=== PATIENT | female | born 1955 | race Caucasian/White ===

== ENCOUNTER 2020-03-17 07:49 | Day surgery (SDC) | payer OTHER ==
[2020-03-16 12:45] LABS: Absolute Lymphocytes (CBC) 1.5 K/uL (0.7-4.9); Basophils % 3.8 % (0-1.3); Hematocrit 38.6 % (36.0-45.0); Lymphocytes % 27.6 % (15.3-44.8); MPV 9.5 fL (7.6-11.3); RBC Red Blood Cell Count 3.87 M/uL (3.86-4.86)
--- NOTE | 2020-03-16 12:47 | RAD REPORT ---
EXAM DESCRIPTION: RAD - Chest Pa And Lat (2 Views) - 03/16/2020 12:39 pm CLINICAL HISTORY: pre op Chest pain. COMPARISON: No comparisons FINDINGS: The lungs are clear. The heart is normal in size. No displaced fractures. IMPRESSION: No acute or concerning finding suspected.
[2020-03-16 13:56] LABS: Blood Morphology Comment NOT SEEN (NOT SEEN); Platelet Estimate ADEQ; White Blood Cell Scan OK (OK)
--- OUTSIDE RECORDS SUMMARY | 2020-03-17 07:58 | XMS REPORT | Summary of Care ---
:1955 Author Organization [facility] Address [address] [place] [address] Care Team Providers Name Role Phone Joe Vega DO Primary Care Provider Reason for Visit Reason Comments Diabetic Eye Exam (Routine) Status Reason Specialty Diagnoses / Procedures Referred By Latosha bocanegraed To Contact Contact Closed Ophthalmology Diagnoses Type 2 diabetes mellitus with stage 3 chronic kidney disease, with long-term current use of insulin Akil Yost MD Procedures CONSULT/REFERRAL OPHTHALMOLOGY Preferred location: [address] [address] Encounter Details Date Type Department Care Team Description 01/05/2020 Office Visit [facility] Eye Livier Ortiz Retinal edema (Primary Dx); Center- Sofiya Leavitt MD Senile nuclear cataract, bilateral; [address], [facility] Refractiv e error [id number] [place] [address] [phone] Allergies No Known Allergiesdocumented as of this encounter (statuses as of 01/05/2020) Medications Medication Sig Dispensed Refills Start Date End Date Status aspirin 81 mg tablet Take 81 mg by 0 Active mouth daily. allopurinol (ZYLOPRIM) Take 1 Tab by 90 Tab 3 04/14/2014 Active 300 mg mouth daily. tabletIndications: Gout, unspecified carvedilol (COREG) TAKE 1 BY MOUTH 180 tablet 1 10/20/2015 Active 6.25 mg tablet TWICE DAILY Blood-Glucose Meter Use as directed, 1 Each 0 09/24/2017 Active (ACCU-CHEK GUIDE DX:E11.9, TID GLUCOSE METER) Misc atorvastatin 10 mg TAKE 1 BY MOUTH 90 tablet 3 01/29/2018 Active tabletIndications: AT BEDTIME Dyslipidemia phentermine 37.5 mg Take 1 capsule by 90 capsule 1 08/14/2018 Active capsuleIndications: mouth every Weight gain morning. ONE TOUCH DELICA 33 Use as directed 100 Each 1 08/14/2018 Active gauge MiscIndications: Once Daily DX: Type 2 diabetes E11.9 mellitus with stage 3 chronic kidney disease, with long-term current use of insulin Insulin [place], Use as directed. 200 Each 3 03/12/2019 Active Disposable, (YANETH PEN 2 times daily NEEDLE) 32 gauge x 5/32" NdleIndications: Type 2 diabetes mellitus with stage 3 chronic kidney disease, with long-term current use of insulin blood sugar diagnostic Use as directed 100 Strip 1 03/12/2019 Active (ONETOUCH VERIO) One time Daily stripIndications: Type DX: E11.9 2 diabetes mellitus with stage 3 chronic kidney disease, with long-term current use of insulin metformin ER 500 mg 24 Take 1 tablet by 90 tablet 1 07/23/2019 Active hr tabletIndications: mouth daily with Type 2 diabetes breakfast. mellitus with stage 3 chronic kidney disease, with long-term current use of insulin insulin glargine U-300 inject 30 Units 15 mL 1 11/26/2019 Active conc (TOUJEO SOLOSTAR under the skin U-300 INSULIN) 300 every morning. unit/mL (1.5 mL) InPnIndications: Type 2 diabetes mellitus with stage 3 chronic kidney disease, with long-term current use of insulin semaglutide (OZEMPIC) inject 1 mg under 3 mL 4 11/26/2019 Active 1 mg/dose (2 mg/1.5 the skin weekly. mL) PnIjIndications: Type 2 diabetes mellitus with stage 3 chronic kidney disease, with long-term current use of insulin documented as of this encounter (statuses as of 01/05/2020) Active Problems Problem Noted Date Dyslipidemia 02/06/2017 Uncontrolled type 2 diabetes with renal manifestation 12/01/2015 Vitamin D deficiency 12/01/2015 Type 2 diabetes mellitus with diabetic chronic kidney disease 08/21/2015 HLD (hyperlipidemia) 08/06/2012 Essential hypertension, benign 08/06/2012 Gout 08/06/2012 Overview: ICD10 Diagnosis Term Heater Operator Helper Utility Obesity 08/06/2012 Overview: ICD10 Diagnosis Term Heater Operator Helper Utility documented as of this encounter (statuses as of 01/05/2020) Resolved Problems Problem Noted Date Resolved Date Type II or unspecified type diabetes mellitus with renal 08/21/2015 manifestations, uncontrolled(250.42) documented as of this encounter (statuses as of 01/05/2020) Immunizations Name Administration Dates Next Due Influenza Virus Vaccine Quad IM 3+ YRS 03/17/2015 documented as of this encounter Social History Tobacco Use Types Packs/Day Years Used Date Never Smoker Smokeless Tobacco: Never Used Alcohol Use Drinks/Week oz/Week Comments Yes occasionally a b eer Sex Assigned at Date Recorded Not on file Job Start Date Occupation Industry Not on file Not on file Not on file Travel History Travel Start Travel End No recent travel history available. COVID-19 Exposure Response Date Recorded In the last month, have you been in contact with No / Unsure 01/05/2020 9:38 AM CDT someone who was confirmed or suspected to have Coronavirus / COVID-19? documented as of this encounter Last Filed Vital Signs Vital Sign Reading Time Taken Comments Blood Pressure - - Pulse - - Temperature - - Respiratory Rate - - Oxygen Saturation - - Inhaled Oxygen Concentration - - Weight 75.3 kg (166 lb) 01/05/2020 9:39 AM CDT Height - - Body Mass Index 29.41 11/26/2019 11:54 AM CDT documented in this encounter Progress Notes Livier Ortiz MD - 01/05/2020 9:45 AM CDT Cc: Diabetic Eye Exam Veronica Braswell is a 64 year old female. HPI Here for diabetic eye exam. Pt has had eye injections in the past. Last eye exam 3 years ago. No eye pain or discomfort. No new floaters or photopsias. Past Medical History: Diagnosis Date CKD (chronic kidney disease), stage III Diabetes mellitus type 2 in obese 1997 HLD (hyperlipidemia) HTN (hypertension) Review of Systems Reviewed ROS done by the airframe technician during this encounter and there are no changes. Assessment ICD-10-CM ICD-9-CM 1. Retinal edema H35.81 362.83 2. Senile nuclear cataract, bilateral H25.13 366.16 3. Refractive error H52.7 367.9 Valentina Martin was seen today for diabetic eye exam. Diagnoses and all orders for this visit: Retinal edema -Type II DM w/ DME OD>OS -with hx of receiving IVT, but lost to follow up. Last injection more than 5 years ago, last eye exam more than 3 years ago. -Will schedule follow up with Retina service for further eval/ treatment/ recommendations Senile nuclear cataract, bilateral -visually significant -plan CE once DME controlled Refractive error -repeat MRX once DME improved Ruth Suarez - 01/05/2020 9:45 AM CDTOCT mac done OU Ruth Suarez 01/05/2020 9:55 AM documented in this encounter Plan of Treatment Date Type Specialty Care Team Description 04/06/2020 Office Visit Endocrinology Diabetes & Matt Yost MD [id number] [place] [address] [phone] Health Maintenance Due Date Last Done Comments HEPATITIS C (HCV) SCREEN 1955 DTaP,Tdap,and Td Vaccines 1966 (1 - Tdap) COLONOSCOPY 12/12/2003 Zoster Recombinant Vaccine 12/12/2003 (SHINGRIX) (1 of 2) Medicare Wellness Visit 2018 PNEUMOCOCCAL VACCINES 65+ 2018 (1 of 2 - PCV13) EYE EXAM 12/13/2018 12/13/2017, 2014 (Previously completed) Breast Cancer Screening 02/27/2020 02/26/2019, 12/25/2017, (MAMMOGRAM) 11/03/2016 INFLUENZA VACCINE (#1) 2020 03/26/2019, 03/17/2015, P ostponed from 03/17/2015 02/17/2020 ([place] r[place] Guidelines) CREATININE (SERUM) 05/07/2020 05/07/2019, 07/06/2015 (Previously completed), 08/11/2014, Additional history exists LDL-C 05/07/2020 05/07/2019, 02/24/2016, 12/01/2015, Additional history exists URINE MICROALBUMIN 05/07/2020 05/07/2019, 02/24/2016, 03/16/2015 HgA1C 05/27/2020 11/26/2019, 07/23/2019, 05/06/2018, Additional history exists FOOT EXAM 07/23/2020 07/23/2019, 07/23/2019, 03/12/2019, Additional history exists Depression Screening 08/06/2020 08/06/2019 Osteoporosis Screening 02/26/2029 02/26/2019 documented as of this encounter Results Not on filedocumented in this encounter Visit Diagnoses Diagnosis Retinal edema - Primary Senile nuclear cataract, bilateral Refractive error Unspecified disorder of refraction and a ccommodation documented in this encounter Insurance Payer Benefit Plan Subscriber ID Effective Phone Address Typ e / Group Dates MEDICARE MEDICARE xxxxxxxxxxx 2018-Pres [phone] [facility] care PART A & B ent [id number] CHRISTOPHER [place] [phone] [place]UT[place] [id number] 2018-Pres Medica sara CARLSON MODOC ent Supplement documented as of this encounter Advance Directives Type Date Recorded Patient Youth Court Judge Explanati on Advance Directives and Living Will Power of Broodmare Barn Groom
--- OUTSIDE RECORDS SUMMARY | 2020-03-17 07:59 | XMS REPORT | Continuity of Care Document ---
:1955 Author Organization [facility] t Address [address] [place] [address] Care Team Providers Name Role Phone Arslan SANDS Attending Clinician Problems This patient has no known problems. Allergies, Adverse Reactions, Alerts This patient has no known allergies or adverse reactions. Medications This patient has no known medications. Procedures This patient has no known procedures. Encounters Start End Encounter Admission Attending Care Care Encounter Source Date/Time Date/Time Type Type Clinicians Facility Department ID 2020-01-26 2020-01-26 Office LEXIS Mcdaniels [id number] 13:18:32 14:28:52 Visit Omar Martinez [id number] [facility] [id number] [facility] [id number] [address] Results This patient has no known results.
--- OUTSIDE RECORDS SUMMARY | 2020-03-17 07:59 | XMS REPORT | Summary of Care ---
:1955 Author Organization [facility] Address [address] [place] [address] Care Team Providers Name Role Phone Joe Vega DO Primary Care Provider Reason for Visit Reason Comments Diabetic Eye Exam (Routine) Status Reason Specialty Diagnoses / Procedures Referred By Latosha bocanegraed To Contact Contact Closed Ophthalmology Diagnoses Type 2 diabetes mellitus with stage 3 chronic kidney disease, with long-term current use of insulin Akil Yost MD Procedures CONSULT/REFERRAL OPHTHALMOLOGY Preferred location: [address] [address] Encounter Details Date Type Department Care Team Description 01/05/2020 Office Visit [facility] Eye Livier Ortiz Retinal edema (Primary Dx); Center- Sofiya Leavitt MD Senile nuclear cataract, bilateral; [address], [facility] Refractiv e error [id number] [place] [address] [phone] Allergies No Known Allergiesdocumented as of this [...] with long-term current use of insulin Insulin [place], Use as directed. 200 Each 3 03/12/2019 [...] 08/06/2012 Gout 08/06/2012 Overview: ICD10 Diagnosis Term Clinical Quality Assurance Specialist Utility Obesity 08/06/2012 Overview: ICD10 Diagnosis Term Clinical Quality Assurance Specialist Utility documented as of this encounter (statuses [...] of Systems Reviewed ROS done by the nutrition technician during this encounter and there are [...] Visit Endocrinology Diabetes & Matt Yost MD [address] [place] [address] [phone] Health Maintenance Due Date Last Done Comments [...] MEDICARE xxxxxxxxxxx 2018-Pres [phone] [address] [facility] care PART A & B ent [id number] CHRI[place]HER [place] [phone] MUTUAL OF MUTUAL OF [id number] 2018-Pres Medica sara CARLSON UGASHIK ent Supplement documented as of this encounter Advance Directives Type Date Recorded Patient Plant Guide Explanati on Advance Directives and Living Will Power of Steward/Stewardess Tourist Class
--- OUTSIDE RECORDS SUMMARY | 2020-03-17 07:59 | XMS REPORT | Summary of Care ---
:1955 Author Organization [facility] Address [address] [place] [address] Care Team Providers Name Role Phone Joe Vega DO Primary Care Provider Reason for Visit Reason Comments BLURRED VISION Cataract DIABETIC MACULAR EDEMA Encounter Details Date Type Department Care Team Description 01/26/2020 Office Visit [facility] Eye Omar Mcdaniels M D Type 2 diabetes mellitus with both eyes affected by moderate nonproliferative retinopathy and macular edema, with long-term current use of insulin (Primary Dx); [place] [address] Retinal edema; [address] [facility]. Senile nuclear cataract, bilateral; [facility]. [place], [place] [address] [phone] Allergies No Known Allergiesdocumented as of this encounter (statuses as of 01/26/2020) Medications Medication Sig Dispensed Refills Start Date [...] with long-term current use of insulin Insulin [place], Use as directed. 200 Each 3 03/12/2019 [...] as of this encounter (statuses as of 01/26/2020) Active Problems Problem Noted Date Dyslipidemia 02/06/2017 Uncontrolled type 2 diabetes with renal manifestation 12/01/2015 Vitamin D deficiency 12/01/2015 Type 2 diabetes mellitus with diabetic chronic kidney disease 08/21/2015 HLD (hyperlipidemia) 08/06/2012 Essential hypertension, benign 08/06/2012 Gout 08/06/2012 Overview: ICD10 Diagnosis Term Automobiles Salesperson Utility Obesity 08/06/2012 Overview: ICD10 Diagnosis Term Automobiles Salesperson Utility documented as of this encounter (statuses as of 01/26/2020) Resolved Problems Problem Noted Date Resolved Date Type II or unspecified type diabetes mellitus with renal 08/21/2015 manifestations, uncontrolled(250.42) documented as of this encounter (statuses as of 01/26/2020) Immunizations Name Administration Dates Next Due Influenza Virus Vaccine Quad IM 3+ YRS 03/17/2015 documented as of this encounter Social History Tobacco Use Types Packs/Day Years Used Date Never Smoker Smokeless Tobacco: Never Used Alcohol Use Drinks/Week oz/Week Comments Yes occasionally a b eer Sex Assigned at Date Recorded Not on file COVID-19 Exposure Response Date Recorded In the [...] - - Weight 75.3 kg (166 lb) 01/26/2020 1:36 PM CDT Height - - Body Mass Index 29.41 11/26/2019 11:54 AM CDT documented in this encounter Progress Notes Omar Mcdaniels MD - 01/26/2020 1:30 PM CDT Ophthalmology New Patient Clinic Note CC: Chief Complaint Patient presents with DIABETIC MACULAR EDEMA Cataract HPI: Veronica Braswell is a 64 year old female with PMH listed below who presents to ophthalmology clinicfor f/u diabetic examination. Pt complains of recent blurry vision over the past 1 year. Pt has hx of intravitreal injections for DME. Referred from Dr. Ortiz for retinal eval. States blood sugars have been well controlled. Denies flashes/floaters. Does not use any eye drops at this time. No hx of ocular trauma No hx of ocular surgery. ROS: Review of systems done by pump technician during this encounter. No changes noted. PMH: Past Medical History: Diagnosis Date CKD (chronic kidney disease), stage III Diabetes mellitus type 2 in obese 1997 HLD (hyperlipidemia) HTN (hypertension) PSH: History reviewed. No pertinent surgical history. SH: Tobacco: Denies FH: Family history + for glaucoma and macular degeneration in mother POH: Last received intravitreal injections in both eyes 5 years ago. Meds: insulin glargine U-300 conc (TOUJEO SOLOSTAR U-300 INSULIN) 300 unit/mL (1.5 mL) InPn inject 30 Units under the skin every morning. semaglutide (OZEMPIC) 1 mg/dose (2 mg/1.5 mL) PnIj inject 1 mg under the skin weekly. metformin ER 500 mg 24 hr tablet Take 1 tablet by mouth daily with breakfast. blood sugar diagnostic (ONETOUCH VERIO) strip Use as directed One time Daily DX: E11.9 Insulin [place], Disposable, (YANETH PEN NEEDLE) 32 gauge x 5/32" Ndle Use as directed. 2 times daily ONE TOUCH DELICA 33 gauge Misc Use as directed Once Daily DX: E11.9 phentermine 37.5 mg capsule Take 1 capsule by mouth every morning. atorvastatin 10 mg tablet TAKE 1 BY MOUTH AT BEDTIME Blood-Glucose Meter (ACCU-CHEK GUIDE GLUCOSE METER) Misc Use as directed, DX:E11.9, TID carvedilol (COREG) 6.25 mg tablet TAKE 1 BY MOUTH TWICE DAILY allopurinol (ZYLOPRIM) 300 mg tablet Take 1 Tab by mouth daily. aspirin 81 mg tablet Take 81 mg by mouth daily. Imaging: OCT Macula (01/26/20): OD: IRF inferotemporally, Macroaneurysm off of inferior arcade, drusen OS: IRF, macroaneurysm temporal to fovea, IRF. drusen Assessment/Plan: 64 year old female seen by ophthalmology for DIABETIC MACULAR EDEMA and Cataract Mild NPDR with mild DME OU - scattered db heme noted - Blood sugars well controlled as per patient - Continue tight control of blood sugars as per PMD - R/B/A of injection vs monitoring discussed at length with patient and as A1c well controlled and VA intact will monitor Capillary Macroaneurysms - Blood sugars under good control, high blood pressure - recommend tight BP control per PCP - monitor Drusen OU - Not visually significant, monitor Cataract OU - Not visually significant at this time RTC: 6-8 week with DFe/OCT ou, consider injection if fluid worsen Gabby Brown DO Retina Fellow I personally examined the patient on 01/26/2020 and agree with fellow note as written . I actively participated in the decision-making process. Please see the fellows's note for additional details. Yolanda Delgadillo - 01/26/2020 1:30 PM CDTOct/mac documented in this encounter Plan of Treatment Date Type Specialty Care Team Description 04/06/2020 Office Visit Endocrinology Diabetes & Matt Yost MD Metabolism [facility] [place], [place] [address] Health Maintenance Due Date Last Done Comments HEPATITIS C (HCV) SCREEN 1955 DTaP,Tdap,and Td Vaccines (1 - 1972 Tdap) COLON CANCER SCREENING ANNUAL 12/12/2003 FIT/FOBT COLON CANCER SCREENING FIT DNA 12/12/2003 EVERY 3 YEARS COLON CANCER SCREENING 12/12/2003 SIGMOIDOSCOPY EVERY 5 YEARS COLONOSCOPY 12/12/2003 Colorectal Cancer Screening 12/12/2003 Zoster Recombinant Vaccine 12/12/2003 (SHINGRIX) (1 of 2) Medicare Wellness Visit 2018 PNEUMOCOCCAL VACCINES 65+ (1 of 1 2018 - PPSV23) INFLUENZA VACCINE (#1) 2020 03/26/2019, 03/17/2015, 03/17/2015 Breast Cancer Screening 02/27/2020 02/26/2019, 12/25/2017, (MAMMOGRAM) 11/03/2016 CREATININE (SERUM) 05/07/2020 05/07/2019, 07/06/2015 (Previously completed), 08/11/2014, Additional history exists LDL-C 05/07/2020 05/07/2019, 02/24/2016, 12/01/2015, Additional history exists URINE MICROALBUMIN 05/07/2020 05/07/2019, 02/24/2016, 03/16/2015 HgA1C 05/27/2020 11/26/2019, 07/23/2019, 05/06/2018, Additional history exists FOOT EXAM 07/23/2020 07/23/2019, 07/23/2019, 03/12/2019, Additional history exists Depression Screening 08/06/2020 08/06/2019 EYE EXAM 01/04/2021 01/05/2020, 12/13/2017, 2014 (Previously completed) Osteoporosis Screening 02/26/2029 02/26/2019 documented as of this encounter Procedures Procedure Name Priority Date/Time Associated Diagnosis Comme nts OU SPECTRALIS OCT Routine 01/26/2020 Type 2 diabetes mellitu s Results for this MACULA, BOTH EYES with both eyes affected by procedure are in moderate nonproliferative th e results retinopathy and macular sect ion. edema, with long-term current use of insulin documented in this encounter Results OU SPECTRALIS OCT MACULA, BOTH EYES (01/26/2020) Impressions Performed At OCT Macula (01/26/20): OD: IRF inferotemporally, Macroa neurysm off of inferior arcade, drusen OS: IRF, macroaneurysm temporal to fovea, IRF. d rusen documented in this encounter Visit Diagnoses Diagnosis Type 2 diabetes mellitus with both eyes affected by moderate nonproliferative retinopathy and macular edema, with long -term current use of insulin - Primary Retinal edema Senile nuclear cataract, bilateral Refractive error Unspecified disorder of refraction and a ccommodation documented in this encounter Insurance Payer Benefit Plan Subscriber ID Effective Phone Address Typ e / Group Dates MEDICARE MEDICARE [id number] 2018-Pres [phone] [address] [facility] care PART A & B ent [phone] CHRISTOPHER [place]IFF[place] [phone] MUTUAL [place] MUT[place] [id number] 2018-Pres Medica sara CARLSON ent Supplement documented as of this encounter Advance Directives Type Date Recorded Patient Recovery Agent Explanati on Advance Directives and Living Will Power of Circulation Representative
--- OUTSIDE RECORDS SUMMARY | 2020-03-17 07:59 | XMS REPORT | Summary of Care ---
:1955 Author Organization [facility] Address [address] [place] [address] Care Team Providers Name Role Phone Joe Vega DO Primary Care Provider Reason for Visit Reason Comments BLURRED VISION Cataract DIABETIC MACULAR EDEMA Encounter Details Date Type Department Care Team Description 01/26/2020 Office Visit [facility] Eye Omar Mcdaniels M D Type 2 diabetes mellitus with both eyes affected by moderate nonproliferative retinopathy and macular edema, with long-term current use of insulin (Primary Dx); [place] [address] Retinal edema; [address] [facility]. Senile nuclear cataract, bilateral; [facility]. [place], [place] [phone] Allergies No Known Allergiesdocumented as of this [...] with long-term current use of insulin Insulin [place], Use as directed. 200 Each 3 03/12/2019 [...] 08/06/2012 Gout 08/06/2012 Overview: ICD10 Diagnosis Term Jewel Bearing Driller Utility Obesity 08/06/2012 Overview: ICD10 Diagnosis Term Jewel Bearing Driller Utility documented as of this encounter (statuses [...] presents with DIABETIC MACULAR EDEMA Cataract HPI: eVronica Braswell is a 64 year old female [...] surgery. ROS: Review of systems done by emergency spill response technician during this encounter. No changes noted. [...] directed One time Daily DX: E11.9 Insulin [place], Disposable, (YANETH PEN NEEDLE) 32 gauge x [...] Endocrinology Diabetes & Matt Yost MD Metabolism [facility] [place], [place] [address] Health Maintenance Due Date Last Done Comments [...] Typ e / Group Dates MEDICARE MEDICARE [id number] 2018-Pres [phone] [facility] care PART A & B ent [phone] [id number] CHRISTOPHER CLIFFORD [phone] MUTUAL OF MUTUAL OF [id number] 2018-Pres Medica sara CARLSON ent Supplement documented as of this encounter Advance Directives Type Date Recorded Patient High [employer] Learning Support Teacher Explanati on Advance Directives and Living Will Power of Sugar Mill Worker
[2020-03-17] MEDS ORDERED: dexAMETHasone 10 MG/ML VIAL ONE (10:31)
[2020-03-17] MEDS ORDERED: FENTANYL CITR 100 MCG/2 ML ONE (10:31)
[2020-03-17] MEDS ORDERED: propofoL 200 MG/20 ML VIAL IV ONE (10:31)
[2020-03-17] MEDS ORDERED: MIDAZOLAM HCL 2 MG/2 ML INJ ONE (10:32)
[2020-03-17] MEDS ORDERED: LIDOCAINE 2% MPF 5 ML VIAL ONE (10:32)
[2020-03-17] MEDS: NA CHLORIDE 0.9% 1,000 ML ONE ×2 (11:27→11:30)
[2020-03-17] MEDS: CEFAZOLIN/SWI 1gm 1 GM/10 ML SYR ONE ×2 (11:30→12:06)
--- NOTE | 2020-03-17 12:16 | P.BOP ---
Preoperative diagnosis: necrotic ulcerated infected wound left elbow/upper arm Postoperative diagnosis: same Primary procedure: Excisional debridment of Left elbow/upper arm infected wound 3x3x0.5cm Estimated blood loss: <10cc Specimen: necrotic wound Findings: as above Anesthesia: General Complications: None Transferred to: Recovery Room Condition: Good
[2020-03-17] MEDS ORDERED: CODEINE 30MG/APAP 300MG TAB ONE (13:13)
--- NOTE | 2020-03-17 13:45 | DS ---
Diagnosis: Ulcerated and necrotic infected wound, left upper arm. Procedure: Wide excision of left elbow infected wound. Disposition: Home. Plan: Normal saline daily, may take a shower with dressings off. The patient and family will be doi ng dressing changes. RICHARD Voice ID: [id number] Report ID: [id number]
[2020-03-17 13:47] VITALS: BP 116/51; TEMP 97; O2SAT 100
--- NOTE | 2020-03-17 13:57 | OP ---
Date of Procedure: 03/17/2020 Surgeon: Derrick White MD Preoperative Diagnosis: Necrotic ulcerated and infected wound of the left elbow, upper arm area. Postoperative Diagnosis: Necrotic ulcerated and infected wound of the left elbow, upper arm area. Procedure Performed: Excisional debridement of infected left elbow and upper arm infected wound 3 x 3 x 0.5 cm. Findings: A necrotic wound with an ulceration. Indications: This is the case of a female, who claimed she had trauma to the left elbow and upper ar m area when a red wasp got there and did bite her. She has been on antibiotics for a week and she no ticed the redness getting worse, ulceration and necrotic tissue present. She was sent to us for debr idement. Benefits, alternatives, and risks of debridement fully explained to the patient, which incl uded, but not limited to infection, bleeding, damage to adjacent structures, anesthesia complication, nonhealing wound, SC, and even . She also understands this may not relieve any symptoms. She might need more than one surgical intervention. She signed a consent. She preferred to do this unde r anesthetic and she claimed it was very painful. Procedure In Detail: The patient was brought to the operating room and placed in supine position. A nesthesia was done without complication. A time-out was called. Left arm was prepped and draped in a sterile fashion. We proceeded to make an incision in a circumferential fashion to remove all tissu e present. The ulceration was also sent. This all the way down to fatty tissue just above the fasci a of the muscle, does not penetrate the muscle. The specimen sent to the pathologist. Cultures were done. Hemostasis was obtained. The area was covered with wet-to-dry dressing. The patient tolerated the procedure well. The patient was sent to Recovery in stable condition. JOEL/LAUREN Voice ID: [id number] Report ID: [id number]
== END 2020-03-17 13:40 | disposition home or self-care (01) ==
LOC: OR 07:49
PROVIDERS: ATTEND Surgery
PROC: 0JBH0ZZ Excision of Left Lower Arm Subcutaneous Tissue and Fascia, Open Approach (ICD-10-PCS; principal; 2020-03-17 10:00)
DX: S51.002A Unspecified open wound of left elbow, initial encounter (principal); L08.9 Local infection of the skin and subcutaneous tissue, unspecified; E11.22 Type 2 diabetes mellitus with diabetic chronic kidney disease; I13.11 Hypertensive heart and chronic kidney disease without heart failure, with stage 5 chronic kidney disease, or end stage renal disease; N18.6 End stage renal disease; Z20.828 Contact with and (suspected) exposure to other viral communicable diseases
CPT/HCPCS: 93005; 87070; 85025; 80048; 36415; 87205; 82947; 88304; 87075; 87077; 87186; 71046; 11042; U0002; J2704; J2250; J3010; J1100; J0690; J7030